=== PATIENT | male | born 1995 | race Caucasian/White ===

== ENCOUNTER 2020-12-15 10:52 | Emergency (ER) | payer MEDICAID, OTHER ==
[~2020-12-15] VITALS: Ht 172.7 cm; Wt 68.6 kg
[2020-12-15 11:28] VITALS: BP 129/84
--- NOTE | 2020-12-15 11:33 | NUR ---
[employer]: STEF IN TRIAGE FOR COVID SWAB.
== END 2020-12-15 12:30 | disposition home or self-care (01) ==
LOC: ED 12:20
DX: U07.1 COVID-19 (principal); J06.9 Acute upper respiratory infection, unspecified; B34.9 Viral infection, unspecified; M79.10 Myalgia, unspecified site
CPT/HCPCS: 99283; U0003; U0005